=== PATIENT | male | born 1955 | race Native Hawaiian/Other Pacific Islander ===

== ENCOUNTER 2019-01-23 23:07 | Emergency (ER) | payer OTHER ==
[~2019-01-23] VITALS: Ht 172.7 cm; Wt 73.5 kg
[2019-01-24 00:05] LABS: PLATELET COUNT 243 K/uL (142-355)
[2019-01-24] MEDS ORDERED: FURO40TA93 PO (00:07)
[2019-01-24] MEDS ORDERED: LIPITOR20 MG PO ×2 (00:08→03:28)
[2019-01-24] MEDS ORDERED: PRINIVIL10 MG PO (00:08)
[2019-01-24] MEDS ORDERED: CELEXA10 MG PO ×2 (00:09→03:29)
[2019-01-24] MEDS ORDERED: METO-837 PO (00:09)
[2019-01-24] MEDS ORDERED: CLARITIN10 M1 PO (00:10)
[2019-01-24] MEDS ORDERED: GABA400C2 PO (00:10)
[2019-01-24] MEDS ORDERED: RANI150T78 PO (00:11)
[2019-01-24] MEDS ORDERED: OXYC10TA3 PO (00:12)
[2019-01-24] MEDS ORDERED: DOCU100C10 PO (00:12)
[2019-01-24] MEDS ORDERED: ASPIRIN/ENTERIC81 MG PO (00:13)
[2019-01-24 00:16] LABS: POTASSIUM 3.7 mmol/L (3.6-5.2)
[2019-01-24 01:35] VITALS: BP 119/66; TEMP 98.6
[2019-01-24] MEDS ORDERED: ASPIRIN 81 LOW81 MG PO (03:25)
[2019-01-24] MEDS ORDERED: FERROUS SULF325 M1 PO (03:34)
[2019-01-24] MEDS ORDERED: INSULIN DETEMIR INJ (03:41)
[2019-01-24] MEDS ORDERED: ZESTRIL30 MG PO (03:43)
[2019-01-24] MEDS ORDERED: LORATADINE PO (03:45)
[2019-01-24] MEDS ORDERED: AMLODIPINE BESYLATE PO (03:47)
[2019-01-24] MEDS ORDERED: JANUVIA100 MG PO (03:49)
[2019-01-24] MEDS ORDERED: [UNRECOGNIZED DRUG - OTHER] PO (04:02)
[2019-01-24] MEDS ORDERED: BUSP5TAB2 PO (04:04)
[2019-01-24] MEDS ORDERED: METOPROLOL25 M1 PO (04:07)
[2019-01-24] MEDS ORDERED: GENTEAL TEARS M1 SO1 OPTH (04:10)
[2019-01-24] MEDS ORDERED: TYLENOL325 MG PO (04:12)
[2019-01-24] MEDS ORDERED: oxycodone-acetaminop PO (04:16)
[2019-01-24] MEDS ORDERED: TRAZODONE HYDRO50 MG PO (04:20)
[2019-01-24] MEDS ORDERED: DICL1GEL2 TOP (04:24)
== END 2019-01-24 01:33 | disposition other institution (70) ==
LOC: ED 23:07
PROVIDERS: Family Medicine
DX: R46.89 Other symptoms and signs involving appearance and behavior (principal); F25.8 Other schizoaffective disorders; Z04.6 Encounter for general psychiatric examination, requested by authority
CPT/HCPCS: 36415; 80053; 85027; 93005; 99285; J1815